=== PATIENT | female | born 1990 | race Caucasian/White ===

== ENCOUNTER 2018-10-27 14:03 | Emergency (ER) | payer OTHER, MEDICAID, SELFPAY ==
[2018-10-27 14:50] VITALS: PULSE 92; RESP 22; TEMP 37.3; O2SAT 97; BMI 48.0
--- NOTE | 2018-10-27 15:44 | ED.PSYCH ---
HPI - Psych <KEILA Dorman - Last Filed: 10/27/18 21:08> General Chief Complaint: Psychiatric Symptoms Stated Complaint: Suicidal Thoughts Time Seen by Provider: 10/27/18 15:15 Source: patient Mode of arrival: ambulatory Limitations: no limitations History of Present Illness HPI Narrative: The patient is a 28-year-old female with history of anxiety, depression and schizoaffective disorder who presents with a chief complaint of suicidal ideations. She states that she wants to kill herself by pill overdose. She states she has had about 3 hospitalizations for depression anxiety and suicide attempts in the past. She denies any homicidal ideations or homicidal thoughts. She denies any substance abuse or alcohol today. Her plan is to overdose on her various psychiatric medications. She states that she is significantly stressed by housing issues at this point time. Review of Systems <KEILA Dorman - Last Filed: 10/27/18 21:08> Review of Systems GENERAL: Denies chills, fatigue, malaise, fever, sweats. HEENT: Denies sinus pain, ear pain, sore throat, difficulty swallowing, dizziness. RESPIRATORY: Denies dyspnea, cough, wheezing, hemoptysis, sputum. CARDIOVASCULAR: Denies chest pain, palpitations, orthopnea, edema, GASTROINTESTINAL: Denies nausea, vomiting, abdominal pain, diarrhea, constipation, melena. : Denies dysuria, frequency, incontinence, hematuria, urinary retention. MUSCULOSKELETAL: denies weakness, joint pain, or bony pain SKIN: Denies rash, skin lesions, or other NEUROLOGIC: Denies weakness, headache, numbness, change in speech, confusion, seizures, incoordination. PSYCHIATRIC: See HPI 12 point review of systems is negative except for those stated above PFSH <KEILA Dorman - Last Filed: 10/27/18 21:08> Social History Smoking Status: Never smoker Social History Smoking Status: Never smoker Exam <LEVI Dorman - Last Filed: 10/27/18 21:08> Narrative Exam Narrative: GENERAL: Obese female no acute distress. Teary. Appears anxious. HEAD: Atraumatic. Normocephalic. No temporal or scalp tenderness. EYES: Pupils equal round and reactive. Extraocular motions intact. No scleral icterus. No injection or drainage. ENT: Nose without bleeding, purulent drainage or septal hematoma. Throat without erythema, tonsillar hypertrophy or exudate. Uvula midline. Airway patent. NECK: Trachea midline. No JVD or lymphadenopathy. Supple, nontender, no meningeal signs. CARDIOVASCULAR: Regular rate and rhythm RESPIRATORY: Clear to auscultation. Breath sounds equal bilaterally. No wheezes, rales, or rhonchi. No cough. No increased respiratory effort. No accessory muscle use. GASTROINTESTINAL: Abdomen soft, non-tender, nondistended. No hepato-splenomegaly, or palpable masses. No guarding. EXTREMITIES: No clubbing, cyanosis, or edema. No joint tenderness, effusion, or edema noted. BACK: Nontender without deformity or crepitance. No flank tenderness. NEURO: AOx3. Flat affect. SKIN: No rash or erythema. Initial Vital Signs Initial Vital Signs: Vital Signs Temperature 99.2 F 10/27/18 14:50 Pulse Rate 92 H 10/27/18 14:50 Respiratory Rate 22 10/27/18 14:50 Pulse Oximetry 97 10/27/18 14:50 <DO Anthony Means Last Filed: 10/28/18 02:05> Initial Vital Signs Initial Vital Signs: Vital Signs Temperature 99.2 F 10/27/18 14:50 Pulse Rate 92 H 10/27/18 14:50 Respiratory Rate 22 10/27/18 14:50 Pulse Oximetry 97 10/27/18 14:50 Course <DAVON Dorman-CELY - Last Filed: 10/27/18 21:08> Orders Ordered: ED Orders 10/27/18 17:35 Acetaminophen Stat Complete Blood Count AUTO DIFF Stat Comprehensive Metabolic Panel Stat Ethanol (ETOH) Stat Salicylate Stat Thyroid Stimulating Hormone Stat Discontinued Medications Hydroxyzine Pamoate (Vistaril) 25 mg PO NOW ONE Stop: 10/27/18 15:44 Last Admin: 10/27/18 17:15 Dose: 25 mg Vital Signs - 8 hr 10/27/18 19:00 10/27/18 23:14 Temperature 97.3 F L Pulse Rate 85 85 Respiratory Rate 13 18 Blood Pressure [Right Arm] 117/66 112/72 Pulse Oximetry 96 100 <DO Anthony Means Last Filed: 10/28/18 02:05> Orders Ordered: ED Orders 10/27/18 17:35 Acetaminophen Stat Complete Blood Count AUTO DIFF Stat Comprehensive Metabolic Panel Stat Ethanol (ETOH) Stat Salicylate Stat Thyroid Stimulating Hormone Stat Discontinued Medications Hydroxyzine Pamoate (Vistaril) 25 mg PO NOW ONE Stop: 10/27/18 15:44 Last Admin: 10/27/18 17:15 Dose: 25 mg Vital Signs - 8 hr 10/27/18 19:00 10/27/18 23:14 Temperature 97.3 F L Pulse Rate 85 85 Respiratory Rate 13 18 Blood Pressure [Right Arm] 117/66 112/72 Pulse Oximetry 96 100 [facility] - Psych <DAVON Dorman-BC - Last Filed: 10/27/18 21:08> Lab Data Result diagrams: 10/27/18 17:35 10/27/18 17:35 Lab Results 10/27/18 10/27/18 10/27/18 Range/Units 14:58 17:35 17:35 WBC 10.4 (4.5-11.0) X10^3/uL RBC 4.25 (4.0-5.2) X10^6/uL Hgb 12.8 (12.0-16.0) g/dL Hct 38.1 (36-46) % MCV 89.6 (80-100) fL MCH 30.2 (26-34) PG MCHC 33.7 (30-36) % RDW 14.5 (11.6-14.8) % Plt Count 213 (150-400) X10^3/uL Neut % (Auto) 48.3 L (50-75) % Lymph % (Auto) 42.5 H (25-40) % Castro % (Auto) 6.5 (3-14) % Eos % (Auto) 1.8 L (2-4) % Baso % (Auto) 0.9 (0-2) % Neut # (Auto) 5000 (1266-7203) /uL Lymph # (Auto) 4400 (4502-8738) /uL Castro # (Auto) 700 (0-900) /uL Eos # (Auto) 200 (0-450) /uL Baso # (Auto) 100 (0-100) /uL Sodium 143 (137-145) mmol/L Potassium 4.5 (3.4-5.1) mmol/L Chloride 105 (98-107) mmol/L Carbon Dioxide 29 (22-32) mmol/L BUN 10 (7-17) mg/dL Creatinine 0.60 (0.52-1.04) mg/dL Estimated GFR > 60.0 (>60) mL/min BUN/Creatinine Ratio 16.7 (6-22) Glucose 92 (70-100) mg/dL Calcium 9.2 (8.4-10.2) mg/dL Total Bilirubin 0.3 (0.2-1.3) mg/dL AST 27 (14-36) IU/L ALT 32 (9-52) IU/L Alkaline Phosphatase 75 (38-126) U/L Total Protein 7.2 (6.3-8.2) g/dL Albumin 4.0 (3.5-5.0) g/dL Globulin 3.2 (1.7-4.1) g/dL Albumin/Globulin Ratio 1.3 (1.0-2.8) TSH (0.47-4.68) uIU/mL Salicylates < 1.0 (<20) mg/dL Urine Opiates Screen Negative (Negative) Ur Oxycodone Screen Negative (Negative) Urine Methadone Screen Negative (Negative) Acetaminophen < 10 L (10-30) ug/mL Ur Barbiturates Screen Negative (Negative) U Tricyclic Antidepress Negative (Negative) Ur Phencyclidine Scrn Negative (Negative) Ur Amphetamines Screen Negative (Negative) U Methamphetamines Scrn Negative (Negative) Ur MDMA Scrn (Ecstasy) Negative (Negative) U Benzodiazepines Scrn Negative (Negative) Urine Cocaine Screen Negative (Negative) U Marijuana (THC) Screen Positive H (Negative) Ethyl Alcohol < 10 mg/dL 10/27/18 Range/Units 17:35 WBC (4.5-11.0) X10^3/uL RBC (4.0-5.2) X10^6/uL Hgb (12.0-16.0) g/dL Hct (36-46) % MCV (80-100) fL MCH (26-34) PG MCHC (30-36) % RDW (11.6-14.8) % Plt Count (150-400) X10^3/uL Neut % (Auto) (50-75) % Lymph % (Auto) (25-40) % Castro % (Auto) (3-14) % Eos % (Auto) (2-4) % Baso % (Auto) (0-2) % Neut # (Auto) (0092-6423) /uL Lymph # (Auto) (8803-7055) /uL Castro # (Auto) (0-900) /uL Eos # (Auto) (0-450) /uL Baso # (Auto) (0-100) /uL Sodium (137-145) mmol/L Potassium (3.4-5.1) mmol/L Chloride (98-107) mmol/L Carbon Dioxide (22-32) mmol/L BUN (7-17) mg/dL Creatinine (0.52-1.04) mg/dL Estimated GFR (>60) mL/min BUN/Creatinine Ratio (6-22) Glucose (70-100) mg/dL Calcium (8.4-10.2) mg/dL Total Bilirubin (0.2-1.3) mg/dL AST (14-36) IU/L ALT (9-52) IU/L Alkaline Phosphatase (38-126) U/L Total Protein (6.3-8.2) g/dL Albumin (3.5-5.0) g/dL Globulin (1.7-4.1) g/dL Albumin/Globulin Ratio (1.0-2.8) TSH 1.70 (0.47-4.68) uIU/mL Salicylates (<20) mg/dL Urine Opiates Screen (Negative) Ur Oxycodone Screen (Negative) Urine Methadone Screen (Negative) Acetaminophen (10-30) ug/mL Ur Barbiturates Screen (Negative) U Tricyclic Antidepress (Negative) Ur Phencyclidine Scrn (Negative) Ur Amphetamines Screen (Negative) U Methamphetamines Scrn (Negative) Ur MDMA Scrn (Ecstasy) (Negative) U Benzodiazepines Scrn (Negative) Urine Cocaine Screen (Negative) U Marijuana (THC) Screen (Negative) Ethyl Alcohol mg/dL Point of Care Testing Test Results Negative Urine Dip Bedside Urine Glucose Negative Bedside Urine Bilirubin - Negative Bedside Urine Ketone +/- 5 Urine Specific [place] 1.025 Bedside Urine Occult Blood - Negative Bedside Urine pH 6.0 Bedside Urine Protein +/- 15 Bedside Urine Urobilinogen +/- 1mg Bedside Urine Nitrite - Negative Bedside Urine Leukocytes +/- 15 Esterase MDM Narrative Medical decision making narrative: The patient is a 28-year-old female who presents with suicidal ideation with a plan. She has a history of multiple suicide attempts, including hanging. She has a history of multiple admissions at [facility]. She is at high risk given her history of anxiety depression and schizoaffective disorder, as well as her history of multiple suicide attempts. She presents voluntarily, so we will attempt to search for a voluntary bed. The patient is medically clear for psychiatric facility. The patient was accepted at [facility] they have her health. Patient will be signed out to Dr. Lu at 21:10 p.m. with expected disposition of a [facility]. <Ken Lu, DO - Last Filed: 10/28/18 02:05> Lab Data Lab Results 10/27/18 10/27/18 10/27/18 Range/Units 14:58 17:35 17:35 WBC 10.4 (4.5-11.0) X10^3/uL RBC 4.25 (4.0-5.2) X10^6/uL Hgb 12.8 (12.0-16.0) g/dL Hct 38.1 (36-46) % MCV 89.6 (80-100) fL MCH 30.2 (26-34) PG MCHC 33.7 (30-36) % RDW 14.5 (11.6-14.8) % Plt Count 213 (150-400) X10^3/uL Neut % (Auto) 48.3 L (50-75) % Lymph % (Auto) 42.5 H (25-40) % Castro % (Auto) 6.5 (3-14) % Eos % (Auto) 1.8 L (2-4) % Baso % (Auto) 0.9 (0-2) % Neut # (Auto) 5000 (8021-7447) /uL Lymph # (Auto) 4400 (4771-4782) /uL Castro # (Auto) 700 (0-900) /uL Eos # (Auto) 200 (0-450) /uL Baso # (Auto) 100 (0-100) /uL Sodium 143 (137-145) mmol/L Potassium 4.5 (3.4-5.1) mmol/L Chloride 105 (98-107) mmol/L Carbon Dioxide 29 (22-32) mmol/L BUN 10 (7-17) mg/dL Creatinine 0.60 (0.52-1.04) mg/dL Estimated GFR > 60.0 (>60) mL/min BUN/Creatinine Ratio 16.7 (6-22) Glucose 92 (70-100) mg/dL Calcium 9.2 (8.4-10.2) mg/dL Total Bilirubin 0.3 (0.2-1.3) mg/dL AST 27 (14-36) IU/L ALT 32 (9-52) IU/L Alkaline Phosphatase 75 (38-126) U/L Total Protein 7.2 (6.3-8.2) g/dL Albumin 4.0 (3.5-5.0) g/dL Globulin 3.2 (1.7-4.1) g/dL Albumin/Globulin Ratio 1.3 (1.0-2.8) TSH (0.47-4.68) uIU/mL Salicylates < 1.0 (<20) mg/dL Urine Opiates Screen Negative (Negative) Ur Oxycodone Screen Negative (Negative) Urine Methadone Screen Negative (Negative) Acetaminophen < 10 L (10-30) ug/mL Ur Barbiturates Screen Negative (Negative) U Tricyclic Antidepress Negative (Negative) Ur Phencyclidine Scrn Negative (Negative) Ur Amphetamines Screen Negative (Negative) U Methamphetamines Scrn Negative (Negative) Ur MDMA Scrn (Ecstasy) Negative (Negative) U Benzodiazepines Scrn Negative (Negative) Urine Cocaine Screen Negative (Negative) U Marijuana (THC) Screen Positive H (Negative) Ethyl Alcohol < 10 mg/dL 10/27/18 Range/Units 17:35 WBC (4.5-11.0) X10^3/uL RBC (4.0-5.2) X10^6/uL Hgb (12.0-16.0) g/dL Hct (36-46) % MCV (80-100) fL MCH (26-34) PG MCHC (30-36) % RDW (11.6-14.8) % Plt Count (150-400) X10^3/uL Neut % (Auto) (50-75) % Lymph % (Auto) (25-40) % Castro % (Auto) (3-14) % Eos % (Auto) (2-4) % Baso % (Auto) (0-2) % Neut # (Auto) (1894-8633) /uL Lymph # (Auto) (1249-0737) /uL Castro # (Auto) (0-900) /uL Eos # (Auto) (0-450) /uL Baso # (Auto) (0-100) /uL Sodium (137-145) mmol/L Potassium (3.4-5.1) mmol/L Chloride (98-107) mmol/L Carbon Dioxide (22-32) mmol/L BUN (7-17) mg/dL Creatinine (0.52-1.04) mg/dL Estimated GFR (>60) mL/min BUN/Creatinine Ratio (6-22) Glucose (70-100) mg/dL Calcium (8.4-10.2) mg/dL Total Bilirubin (0.2-1.3) mg/dL AST (14-36) IU/L ALT (9-52) IU/L Alkaline Phosphatase (38-126) U/L Total Protein (6.3-8.2) g/dL Albumin (3.5-5.0) g/dL Globulin (1.7-4.1) g/dL Albumin/Globulin Ratio (1.0-2.8) TSH 1.70 (0.47-4.68) uIU/mL Salicylates (<20) mg/dL Urine Opiates Screen (Negative) Ur Oxycodone Screen (Negative) Urine Methadone Screen (Negative) Acetaminophen (10-30) ug/mL Ur Barbiturates Screen (Negative) U Tricyclic Antidepress (Negative) Ur Phencyclidine Scrn (Negative) Ur Amphetamines Screen (Negative) U Methamphetamines Scrn (Negative) Ur MDMA Scrn (Ecstasy) (Negative) U Benzodiazepines Scrn (Negative) Urine Cocaine Screen (Negative) U Marijuana (THC) Screen (Negative) Ethyl Alcohol mg/dL Point of Care Testing Test Results Negative Urine Dip Bedside Urine Glucose Negative Bedside Urine Bilirubin - Negative Bedside Urine Ketone +/- 5 Urine Specific [place] 1.025 Bedside Urine Occult Blood - Negative Bedside Urine pH 6.0 Bedside Urine Protein +/- 15 Bedside Urine Urobilinogen +/- 1mg Bedside Urine Nitrite - Negative Bedside Urine Leukocytes +/- 15 Esterase Discharge Plan Departure Patient Disposition: Xfer Psychiatric Hosp Clinical Impression: Suicidal ideation Discharge Date/Time: 10/28/18 02:03 Interventions: ED Discharge Assessment Last Done: 10/28/18 02:01 <Ken Lu DO - Last Filed: 10/28/18 02:05> Cosign ED Attending Cosignature Attestation: Received turned over, the patient is voluntary. Is medically cleared. Excepted as smoking point be a viral health. Transportation arranged. Dr. cordero is the accepting physician. Patient was transported without any complications.
[2018-10-27 16:03] LABS: Urine Amphetamines Negative (Negative); Urine Barbiturates Negative (Negative); Urine Benzodiazepines Negative (Negative); Urine Cocaine Negative (Negative); Urine MDMA Negative (Negative); Urine Methadone Negative (Negative); Urine Methamphetamines Negative (Negative); Urine Morphine/Opi cutoff 2000 Negative (Negative); Urine Oxycodone Negative (Negative); Urine Phencyclidine Negative (Negative); Urine Tetrahydrocannabinol Positive (Negative); Urine Tricyclic Antidepressant Negative (Negative)
--- NOTE | 2018-10-27 16:33 | PC.NURSE ---
I helped the patient get all her belongings bagged and locked away, got her warm socks and a warm blanket. She is sitting on the bed and cooperating currently.
[2018-10-27] MEDS: hydrOXYzine pamoate 25 MG CAPSULE PO (17:15)
[2018-10-27 17:47] LABS: Add Manual Diff / Slide Review NO; Basophils Absolute Auto 100 /uL (0-100); Basophils Percent Auto 0.9 % (0-2); Eosinophils Absolute Auto 200 /uL (0-450); Eosinophils Percent Auto 1.8 % (2-4); Hematocrit 38.1 % (36-46); Hemoglobin 12.8 g/dL (12.0-16.0); Lymphocytes Absolute Auto 4400 /uL (1100-4500); Lymphocytes Percent Auto 42.5 % (25-40); Mean Corpuscular HGB Conc 33.7 % (30-36); Mean Corpuscular Hemoglobin 30.2 PG (26-34); Mean Corpuscular Volume 89.6 fL (80-100); Monocytes Absolute Auto 700 /uL (0-900); Monocytes Percent Auto 6.5 % (3-14); Neutrophils Absolute Auto 5000 /uL (1500-7000); Neutrophils Percent Auto 48.3 % (50-75); Platelet Count 213 X10^3/uL (150-400); Red Blood Cell Count 4.25 X10^6/uL (4.0-5.2); Red Cell Distribution Width 14.5 % (11.6-14.8); White Blood Cell Count 10.4 X10^3/uL (4.5-11.0)
[2018-10-27 18:02] LABS: Alanine Aminotransferase 32 IU/L (9-52); Albumin Globulin Ratio 1.3 (1.0-2.8); Alkaline Phosphatase 75 U/L (38-126); Aspartate Aminotransferase 27 IU/L (14-36); BUN Creatinine Ratio 16.7 (6-22); Bilirubin Total 0.3 mg/dL (0.2-1.3); Blood Urea Nitrogen 10 mg/dL (7-17); Calcium 9.2 mg/dL (8.4-10.2); Carbon Dioxide 29 mmol/L (22-32); Chloride 105 mmol/L (98-107); Estimated Glomerular Filt Rate > 60.0 mL/min (>60); Globulin 3.2 g/dL (1.7-4.1); Glucose 92 mg/dL (70-100); HEMOLYSIS < 15 (0-50); Potassium 4.5 mmol/L (3.4-5.1); Sodium 143 mmol/L (137-145); Total Protein 7.2 g/dL (6.3-8.2)
[2018-10-27 18:16] LABS: Acetaminophen < 10 ug/mL (10-30); Ethanol (ETOH) < 10 mg/dL; Salicylate < 1.0 mg/dL (<20)
[2018-10-27 19:00] VITALS: BP 117/66; PULSE 85; RESP 13; TEMP 36.3; O2SAT 96
--- NOTE | 2018-10-27 19:45 | PC.NURSE ---
pt sitting on mattress, door is open to hallway.
--- NOTE | 2018-10-27 19:47 | PC.NURSE ---
pt resting on bed, door is open to hallway and lights are on in room.
--- NOTE | 2018-10-27 19:52 | PC.NURSE ---
Gave pt sandwich
--- NOTE | 2018-10-27 19:53 | PC.NURSE ---
Pt sitting on bed, door is open to [place] and lights are on in room.
--- NOTE | 2018-10-27 20:26 | PC.NURSE ---
patient wants to go home. Says she was having a panic attack about her situation of possibly being homeless. Her mom called earlier and told her that the application for the apartment went through and they would have a place to stay. EDNurse practicioner in the room now speaking with her and possibility of SHANNAN ing her . She said she only attempted was when she was in custodial and she was feeling very down. She tried to wrap a towel around her throat. After talking with the nurse practioner she started to cry about her depression and so she said she would stay and wait for a voluntary bed.
--- NOTE | 2018-10-27 20:31 | PC.NURSE ---
PROTEOMICS SCIENTIST in room talking with pt
--- NOTE | 2018-10-27 20:45 | PC.NURSE ---
pt lying down on bed with blankets pulled over herself, door is open to hallway and lights are on.
--- NOTE | 2018-10-27 21:16 | PC.NURSE ---
pt resting on bed
--- NOTE | 2018-10-27 22:05 | PC.NURSE ---
pt is resting on bed with blankets over her. The door is open to [place] and lights are on in room.
--- NOTE | 2018-10-27 22:33 | PC.NURSE ---
pt is restless laying in bed.
--- NOTE | 2018-10-27 23:08 | PC.NURSE ---
Patient is sitting on bed and eating, Door is open to hallway.
[2018-10-27 23:14] VITALS: BP 112/72; PULSE 85; RESP 18; O2SAT 100
--- NOTE | 2018-10-27 23:15 | PC.NURSE ---
Patient is calm and lying down, door is open to hallway.
--- NOTE | 2018-10-27 23:30 | PC.NURSE ---
Patient is sitting up in bed eating a snack. Door is open to the hallway.
--- NOTE | 2018-10-27 23:45 | PC.NURSE ---
Patient is calm and lying down in bed, door is open to [place].
--- NOTE | 2018-10-28 | PC.NURSE ---
Patient is lying down and is calm. The door is open to the [place].
--- NOTE | 2018-10-28 00:15 | PC.NURSE ---
Patient is calm and lying down in bed, door is open to [place]
--- NOTE | 2018-10-28 00:30 | PC.NURSE ---
Patient is lying quietly on the bed. The door is open.
--- NOTE | 2018-10-28 00:45 | PC.NURSE ---
Patient is lying down and calm. The door is open to the [place].
--- NOTE | 2018-10-28 01:00 | PC.NURSE ---
Patient is lying down on the bed an dis clam and quiet, door is open to the [place]
--- NOTE | 2018-10-28 01:15 | PC.NURSE ---
Patient is quiet and calm, lying down in bed.
--- NOTE | 2018-10-28 01:30 | PC.NURSE ---
Patient is calm an lying down in bed, is talking with nurse.
--- NOTE | 2018-10-28 01:45 | PC.NURSE ---
Patient is calm, quiet, and lying down in bed
== END 2018-10-28 02:03 ==
PROVIDERS: Emergency Provider Nurse Practitioner Family
DX: R45.851 Suicidal ideations (principal)
CPT/HCPCS: 80053; 80305; 80320; 80329; 81003; 81025; 84443; 85025; 99285; G0480